=== PATIENT | female | born 1995 | race Two or more races ===

== ENCOUNTER 2022-07-21 07:57 | Outpatient (CLI) | payer OTHER | END 2022-07-21 09:17 | disposition home or self-care (01) | LOC: PRENATAL 07:57 | PROVIDERS: ATTEND Obstetrics & Gynecology Maternal & Fetal Medicine | DX: O36.80X0 Pregnancy with inconclusive fetal viability, not applicable or unspecified (principal); Z3A.12 12 weeks gestation of pregnancy ==

== ENCOUNTER 2022-08-02 07:29 | Emergency (ER) | payer OTHER ==
[~2022-08-02] VITALS: Ht 152.4 cm; Wt 57.2 kg
== END 2022-08-02 11:57 | disposition home or self-care (01) ==
LOC: ER 07:29
DX: O99.891 Other specified diseases and conditions complicating pregnancy (principal); Z3A.16 16 weeks gestation of pregnancy; Z88.8 Allergy status to other drugs, medicaments and biological substances; N23 Unspecified renal colic

== ENCOUNTER 2022-09-09 07:48 | Outpatient (CLI) | payer OTHER | END 2022-09-09 08:48 | disposition home or self-care (01) | LOC: PRENATAL 07:48 | PROVIDERS: ATTEND Obstetrics & Gynecology Maternal & Fetal Medicine | DX: O35.9XX0 Maternal care for (suspected) fetal abnormality and damage, unspecified, not applicable or unspecified (principal); O35.3XX0 Maternal care for (suspected) damage to fetus from viral disease in mother, not applicable or unspecified; Z3A.19 19 weeks gestation of pregnancy ==

== ENCOUNTER 2022-10-14 11:59 | Outpatient (CLI) | payer OTHER ==
[2022-10-14] MEDS ORDERED: PRENATAL TABLE1 EAC4 PO (12:55)
== END 2022-10-15 11:44 | disposition home or self-care (01) ==
LOC: OBS/DEL 11:59
PROVIDERS: ATTEND Obstetrics & Gynecology
DX: O23.32 Infections of other parts of urinary tract in pregnancy, second trimester (principal); N39.0 Urinary tract infection, site not specified; Z3A.25 25 weeks gestation of pregnancy; Z88.6 Allergy status to analgesic agent

== ENCOUNTER 2022-12-03 15:09 | Outpatient (CLI) | payer OTHER ==
[~2022-12-03 15:09] MED LIST: PRENATAL TABLE1 EAC4 PO
== END 2022-12-03 17:01 | disposition home or self-care (01) ==
LOC: PRENATAL 15:09
PROVIDERS: ATTEND Obstetrics & Gynecology Maternal & Fetal Medicine
DX: O26.849 Uterine size-date discrepancy, unspecified trimester (principal); O35.3XX0 Maternal care for (suspected) damage to fetus from viral disease in mother, not applicable or unspecified; O36.8199 Decreased fetal movements, unspecified trimester, other fetus; O32.9XX0 Maternal care for malpresentation of fetus, unspecified, not applicable or unspecified; Z3A.32 32 weeks gestation of pregnancy

== ENCOUNTER 2023-01-01 14:46 | Outpatient (CLI) | payer OTHER | END 2023-01-01 16:32 | disposition home or self-care (01) | LOC: PRENATAL 14:46 | PROVIDERS: ATTEND Obstetrics & Gynecology Maternal & Fetal Medicine | DX: O26.849 Uterine size-date discrepancy, unspecified trimester (principal); O35.3XX0 Maternal care for (suspected) damage to fetus from viral disease in mother, not applicable or unspecified; O36.8199 Decreased fetal movements, unspecified trimester, other fetus; Z3A.36 36 weeks gestation of pregnancy ==

== ENCOUNTER 2023-01-17 05:43 | Inpatient (IN) | payer OTHER ==
[~2023-01-17] VITALS: Ht 152.4 cm; Wt 64.4 kg
== END 2023-01-20 11:41 | disposition home or self-care (01) | DRG 788 ==
LOC: OBS/DEL 05:43 → LDR 07:29 → OB/GYN 07:29
PROVIDERS: Specialist; ADMIT Obstetrics & Gynecology; ATTEND Obstetrics & Gynecology
PROC: 4A1HXCZ Monitoring of Products of Conception, Cardiac Rate, External Approach (ICD-10-PCS; 2023-01-17)
PROC: 10D00Z1 Extraction of Products of Conception, Low, Open Approach (ICD-10-PCS; principal; 2023-01-17 09:15)
DX: O33.8 Maternal care for disproportion of other origin (principal); O36.8330 Maternal care for abnormalities of the fetal heart rate or rhythm, third trimester, not applicable or unspecified; Z3A.38 38 weeks gestation of pregnancy; Z37.0 Single live birth; Z20.822 Contact with and (suspected) exposure to COVID-19

== ENCOUNTER 2023-01-30 12:07 | Emergency (ER) | payer OTHER ==
[~2023-01-30] VITALS: Ht 152.4 cm; Wt 57.2 kg
== END 2023-01-30 15:07 | disposition home or self-care (01) ==
LOC: ER 12:07
PROVIDERS: General Practice
DX: N20.1 Calculus of ureter (principal); Z88.6 Allergy status to analgesic agent

== ENCOUNTER 2023-09-10 22:11 | Emergency (ER) | payer OTHER ==
[~2023-09-10] VITALS: Ht 152.4 cm; Wt 49.9 kg
[2023-09-10] MEDS ORDERED: FAMOTIDINE/PF 20 MG in 0.9 % SODIUM CHLORIDE 8 ML IV PUSH STA (22:58)
[2023-09-10] MEDS ORDERED: ONDANSETRON HCL 2 MG/ML VIAL IV ONE (23:00)
[2023-09-10] MEDS ORDERED: 0.9 % SODIUM CHLORIDE 1,000 ML IV SCH (23:00)
[2023-09-10] MEDS ORDERED: KETOROLAC TROMETHAMINE 30 MG VIAL IV ONE (23:00)
[2023-09-11 00:08] LABS: HEMATOCRIT 39.8 % (36.0-45.00); HEMOGLOBIN 13.4 g/dL (12.0-15.00); MEAN CELL VOLUME 87.7 fL (80.00-100.00); MEAN CORPUSCULAR HEMOGLOBIN 29.6 pg (27.00-32.0); MEAN CORPUSCULAR HGB CONC 33.7 g/dl (32.0-36.0); PLATELET COUNT 304 K/uL (150-450); RED BLOOD COUNT 4.53 M/uL (4.00-6.00); RED CELL DISTRIBUTION WIDTH 13.7 % (11.5-14.5)
[2023-09-11 00:35] LABS: ALBUMIN 4.3 gm/dL (3.4-5.0); BILIRUBIN TOTAL 0.64 mg/dL (0.3-1.2); CALCIUM 9.2 mg/dL (8.5-10.1); CREATININE SERUM 0.95 mg/dL (0.55-1.02); GFR 69.55; GLOBULINA 4.4 G/DL (2.4-3.5); POTASSIUM 3.77 mEq/L (3.5-5.1); TOTAL PROTEIN 8.7 gm/dL (6.4-8.2)
[2023-09-11] MEDS ORDERED: HYOSCYAMINE SULFATE 0.125 MG TAB.SUBL SL STA (04:06)
[2023-09-11] MEDS ORDERED: ONDANSETRON HCL 2 MG/ML VIAL IV STA (04:06)
[2023-09-11] MEDS ORDERED: FAMOTIDINE/PF 20 MG/2 ML VIAL IV PUSH STA (04:07)
== END 2023-09-11 07:24 | disposition home or self-care (01) ==
LOC: ER 22:12
PROVIDERS: General Practice
DX: R11.2 Nausea with vomiting, unspecified (principal); R19.7 Diarrhea, unspecified; R10.9 Unspecified abdominal pain; Z88.6 Allergy status to analgesic agent

== ENCOUNTER 2023-12-22 20:29 | Emergency (ER) | payer OTHER ==
[~2023-12-22] VITALS: Ht 152.4 cm; Wt 46.3 kg
[~2023-12-22 20:29] MED LIST changes: +AMOX-CLAV 875-1 EACH PO; +ZYRTEC10 M3 PO
[2023-12-22] MEDS ORDERED: AZITHROMYCIN500 MG (20:43)
[2023-12-22] MEDS ORDERED: KETOROLAC TROMETHAMINE 60 MG VIAL IM ONE ×2 (21:00→21:13)
[2023-12-22] MEDS ORDERED: DEXAMETHASONE SODIUM PHOSPHATE 4 MG/ML VIAL IM ONE (21:00)
[2023-12-22] MEDS ORDERED: DEXAMETHASONE SODIUM PHOSPHATE 4 MG/ML VIAL ONE (21:13)
[2023-12-22 21:33] LABS: HEMATOCRIT 34.7 % (36.0-45.00); HEMOGLOBIN 11.9 g/dL (12.0-15.00); MEAN CELL VOLUME 91.5 fL (80.00-100.00); MEAN CORPUSCULAR HEMOGLOBIN 31.5 pg (27.00-32.0); MEAN CORPUSCULAR HGB CONC 34.4 g/dl (32.0-36.0); PLATELET COUNT 233 K/uL (150-450); RED BLOOD COUNT 3.79 M/uL (4.00-6.00); RED CELL DISTRIBUTION WIDTH 13.7 % (11.5-14.5)
== END 2023-12-22 22:30 | disposition home or self-care (01) ==
LOC: ER 20:30
PROVIDERS: General Practice
DX: R07.0 Pain in throat (principal); Z20.822 Contact with and (suspected) exposure to COVID-19; Z88.6 Allergy status to analgesic agent

== ENCOUNTER 2024-10-17 08:34 | Emergency (ER) | payer OTHER ==
[~2024-10-17] VITALS: Ht 152.4 cm; Wt 49.9 kg
[~2024-10-17 08:34] MED LIST changes: +AZITHROMYCIN500 MG
[2024-10-17] MEDS ORDERED: DEXAMETHASONE SODIUM PHOSPHATE 4 MG/ML VIAL IM STA (09:48)
[2024-10-17] MEDS ORDERED: DEXAMETHASONE SODIUM PHOSPHATE 4 MG/ML VIAL ONE (09:52)
[2024-10-17 11:06] LABS: HEMATOCRIT 37.9 % (34.1-44.9); RED BLOOD COUNT 4.29 M/uL (3.93-5.22)
[2024-10-17 11:07] LABS: BASO % 0.8 % (0.1-1.2); EOS # 0.04 (0.04-0.54); LYMPH # 1.44 (1.18-3.74); LYMPH % 36.5 % (19.3-53.1); MEAN CORPUSCULAR HEMOGLOBIN 30.3 pg (25.6-32.2); MONO # 0.35 (0.24-0.82); MONO % 8.9 % (4.7-12.5); NEUT # 2.08 (1.56-6.13); NEUT % 52.5 % (34.0-71.1); PLATELET COUNT 278 K/uL (163-369); RED CELL DISTRIBUTION WIDTH 11.9 % (11.6-14.4)
[2024-10-17 11:56] LABS: COVID-19 AG NEGATIVE (NEGATIVE); INFLUENZA A AG NEGATIVE (NEGATIVE)
== END 2024-10-17 12:24 | disposition home or self-care (01) ==
LOC: ER 08:34
PROVIDERS: General Practice
DX: R51.9 Headache, unspecified (principal); Z20.822 Contact with and (suspected) exposure to COVID-19; Z88.8 Allergy status to other drugs, medicaments and biological substances